=== PATIENT | female | born 1990 | race Native Hawaiian/Other Pacific Islander ===

== ENCOUNTER 2016-10-09 20:15 | Emergency (ER) | payer OTHER ==
[~2016-10-09] VITALS: Ht 157.5 cm; Wt 68.9 kg
[~2016-10-09 20:15] MED LIST: ALPR0.5T24 PO; BENZ100C8 PO; CIPR500T PO; CRESTOR5 MG PO; CYAN10009 IM; FIORICET OR; FLUT0.05 NAS; GUAI600T70 PO; MEDROL DOSEPAK4 MG OR; OCUFLOX0.3 % OP; SIMV20TA2 PO; TRILEPTAL300 MG OR; Z-PAK PO
[2016-10-09 20:33] VITALS: BP 127/83; TEMP 98.1
== END 2016-10-09 21:01 | disposition home or self-care (01) ==
LOC: ED 20:15
DX: G40.802 Other epilepsy, not intractable, without status epilepticus (principal); Z33.1 Pregnant state, incidental
CPT/HCPCS: 99284

== ENCOUNTER 2016-10-31 18:32 | Outpatient (CLI) | payer OTHER | END 2016-10-31 18:37 | disposition short-term general hospital (02) | LOC: AMB 18:32 | DX: G40.89 Other seizures (principal); R00.0 Tachycardia, unspecified | CPT/HCPCS: A0425; A0427 ==

== ENCOUNTER 2016-10-31 18:40 | Emergency (ER) | payer OTHER ==
[~2016-10-31] VITALS: Ht 157.5 cm; Wt 68.0 kg
[2016-10-31 19:32] VITALS: BP 136/83; TEMP 98.1
== END 2016-10-31 19:34 | disposition home or self-care (01) ==
LOC: ED 18:40
DX: S30.1XXA Contusion of abdominal wall, initial encounter (principal); Z33.1 Pregnant state, incidental; W18.39XA Other fall on same level, initial encounter; Y92.511 Restaurant or cafe as the place of occurrence of the external cause
CPT/HCPCS: 99284

== ENCOUNTER 2017-06-13 22:51 | Emergency (ER) | payer OTHER ==
[~2017-06-13] VITALS: Ht 157.5 cm; Wt 72.1 kg
[2017-06-13 23:05] VITALS: BP 113/73; TEMP 98.3
[2017-06-14] MEDS ORDERED: LAMICTAL25 MG PO (00:30)
[2017-06-14] MEDS ORDERED: LAMICTAL100 MG PO (00:32)
[2017-06-14 00:35] LABS: PLATELET COUNT 307 K/uL (152-353)
[2017-06-14 00:41] LABS: POTASSIUM 4.1 mmol/L (3.6-5.2); SODIUM 134 mmol/L (136-145)
== END 2017-06-14 00:46 | disposition home or self-care (01) ==
LOC: ED 22:51
DX: R56.9 Unspecified convulsions (principal)
CPT/HCPCS: 36415; 80053; 80320; 81000; 82150; 83690; 85027; 85651; 99283

== ENCOUNTER 2017-07-07 13:17 | Outpatient (CLI) | payer OTHER ==
[~2017-07-07 13:17] MED LIST changes: +LAMICTAL100 MG PO; +LAMICTAL25 MG PO
== END 2017-07-07 19:12 | disposition home or self-care (01) ==
LOC: RAD 13:17
DX: M25.512 Pain in left shoulder (principal); M25.511 Pain in right shoulder; M54.5 Low back pain

== ENCOUNTER 2018-03-14 18:01 | Emergency (ER) | payer OTHER ==
[~2018-03-14] VITALS: Ht 157.5 cm; Wt 71.7 kg
[2018-03-14 20:23] VITALS: BP 124/76; TEMP 98.4
== END 2018-03-14 20:24 | disposition home or self-care (01) ==
LOC: ED 18:01
DX: J02.9 Acute pharyngitis, unspecified (principal)
CPT/HCPCS: 36415; 87081; 87880; 99283

== ENCOUNTER 2018-04-26 23:41 | Emergency (ER) | payer OTHER ==
[~2018-04-26] VITALS: Ht 157.5 cm; Wt 71.7 kg
[2018-04-27 00:33] LABS: PLATELET COUNT 279 K/uL (152-353)
[2018-04-27 01:09] LABS: POTASSIUM 3.6 mmol/L (3.6-5.2)
[2018-04-27 02:18] VITALS: BP 140/90; TEMP 98.3
== END 2018-04-27 02:18 | disposition home or self-care (01) ==
LOC: ED 23:41
PROVIDERS: Internal Medicine
DX: R10.32 Left lower quadrant pain (principal); R31.9 Hematuria, unspecified; D72.828 Other elevated white blood cell count
CPT/HCPCS: 36415; 80053; 81000; 85027; 96374; 96375; 99284; J1885; J2405

== ENCOUNTER 2019-08-29 22:12 | Outpatient (CLI) | payer OTHER | END 2019-08-29 22:19 | disposition short-term general hospital (02) | LOC: AMB 22:12 | DX: G40.89 Other seizures (principal); M79.601 Pain in right arm; W19.XXXA Unspecified fall, initial encounter | CPT/HCPCS: A0425; A0429 ==

== ENCOUNTER 2019-08-29 22:26 | Emergency (ER) | payer OTHER ==
[~2019-08-29] VITALS: Ht 157.5 cm; Wt 71.7 kg
[2019-08-29 22:54] LABS: PLATELET COUNT 333 K/uL (152-353)
[2019-08-29 23:06] LABS: POTASSIUM 3.5 mmol/L (3.6-5.2)
[2019-08-29 23:52] VITALS: BP 142/99; TEMP 97.5
== END 2019-08-29 23:52 | disposition home or self-care (01) ==
LOC: ED 22:26
PROVIDERS: Emergency Medicine
DX: G40.89 Other seizures (principal)
CPT/HCPCS: 80053; 80307; 81000; 81025; 83735; 85027; 99283

== ENCOUNTER 2020-02-29 13:20 | Outpatient (CLI) | payer OTHER | END 2020-02-29 21:40 | disposition home or self-care (01) | LOC: RAD 13:20 | DX: M54.2 Cervicalgia (principal); M54.5 Low back pain; M75.51 Bursitis of right shoulder ==

== ENCOUNTER 2020-11-29 08:56 | Outpatient (CLI) | payer OTHER | END 2020-11-29 21:46 | disposition home or self-care (01) | LOC: RESP 08:56 | PROVIDERS: ATTEND Specialist | DX: G40.209 Localization-related (focal) (partial) symptomatic epilepsy and epileptic syndromes with complex partial seizures, not intractable, without status epilepticus (principal); G40.309 Generalized idiopathic epilepsy and epileptic syndromes, not intractable, without status epilepticus ==

== ENCOUNTER 2021-02-04 11:03 | Outpatient (CLI) | payer OTHER | END 2021-02-04 22:14 | disposition home or self-care (01) | LOC: RAD 11:03 | PROVIDERS: ATTEND Nurse Practitioner Family | DX: Z01.818 Encounter for other preprocedural examination (principal); M54.9 Dorsalgia, unspecified; K21.9 Gastro-esophageal reflux disease without esophagitis; G40.409 Other generalized epilepsy and epileptic syndromes, not intractable, without status epilepticus; E78.5 Hyperlipidemia, unspecified; M25.50 Pain in unspecified joint; M85.80 Other specified disorders of bone density and structure, unspecified site | CPT/HCPCS: 93005 ==

== ENCOUNTER 2021-08-05 10:49 | Emergency (ER) | payer OTHER ==
[~2021-08-05] VITALS: Ht 157.5 cm; Wt 71.7 kg
[2021-08-05 10:53] VITALS: TEMP 97.8
[2021-08-05 11:25] VITALS: BP 138/88
== END 2021-08-05 11:26 | disposition home or self-care (01) ==
LOC: ED 10:49
DX: K02.9 Dental caries, unspecified (principal); Z76.0 Encounter for issue of repeat prescription
CPT/HCPCS: 99282

== ENCOUNTER 2021-08-08 19:06 | Emergency (ER) | payer OTHER ==
[~2021-08-08] VITALS: Ht 157.5 cm; Wt 83.5 kg
[2021-08-08 20:36] VITALS: BP 128/74; TEMP 97.9
== END 2021-08-08 20:36 | disposition home or self-care (01) ==
LOC: ED 19:06
DX: M25.511 Pain in right shoulder (principal); M75.51 Bursitis of right shoulder; R56.9 Unspecified convulsions; X58.XXXA Exposure to other specified factors, initial encounter; Y92.89 Other specified places as the place of occurrence of the external cause
CPT/HCPCS: 96372; 99283; J1885